=== PATIENT | female | born 1995 | race Caucasian/White ===

== ENCOUNTER → 2019-08-17 | Outpatient (CLI) | payer MEDICAID | LOC: LAB FS 09:12 | PROVIDERS: ATTEND Obstetrics & Gynecology | DX: Z34.80 Encounter for supervision of other normal pregnancy, unspecified trimester (principal) | CPT/HCPCS: 36415; 84702 ==

== ENCOUNTER → 2020-02-18 | Outpatient (CLI) | payer MEDICAID ==
[2020-02-18 14:31] LABS: BASOPHILS % (AUTO) 0 % (0-10); EOSINOPHILS # (AUTO) 0.3 10^3/uL (0.0-0.3); EOSINOPHILS % (AUTO) 3 % (0-10); HEMATOCRIT 38 % (35-52); HEMOGLOBIN 12.3 G/DL (11.5-16.0); LYMPHOCYTES # (AUTO) 1.8 X 10^3 (1.0-4.0); LYMPHOCYTES % (AUTO) 19 % (12-44); MEAN CORPUSCULAR HEMOGLOBIN 29 PG (25-34); MEAN CORPUSCULAR HGB CONC 33 G/DL (32-36); MEAN CORPUSCULAR VOLUME 88 FL (80-99); MEAN PLATELET VOLUME 10.7 FL (7.4-10.4); MONOCYTES # (AUTO) 0.6 X 10^3 (0.0-1.0); MONOCYTES % (AUTO) 7 % (0-12); NEUTROPHILS # (AUTO) 6.6 X 10^3 (1.8-7.8); NEUTROPHILS % (AUTO) 71 % (42-75); PLATELET COUNT 233 10^3/uL (130-400); WHITE BLOOD COUNT 9.3 10^3/uL (4.3-11.0)
== END ==
LOC: LAB 14:14
PROVIDERS: ATTEND Family Medicine
DX: N92.6 Irregular menstruation, unspecified (principal)
CPT/HCPCS: 36415; 84443; 85025

== ENCOUNTER → 2021-04-02 | Outpatient (CLI) | payer BC | LOC: MERGE 14:51 → LABNPT 14:51 | PROVIDERS: ATTEND Family Medicine | DX: N89.8 Other specified noninflammatory disorders of vagina (principal) | CPT/HCPCS: 87210 ==

== ENCOUNTER → 2021-05-20 | Outpatient (CLI) | payer BC | LOC: LAB FS 13:03 | PROVIDERS: ATTEND Family Medicine | DX: O09.91 Supervision of high risk pregnancy, unspecified, first trimester (principal); Z3A.00 Weeks of gestation of pregnancy not specified | CPT/HCPCS: 36415; 84702 ==

== ENCOUNTER 2021-10-27 10:57 | Emergency (ER) | payer BC ==
[~2021-10-27] VITALS: Ht 157.5 cm; Wt 69.8 kg
--- NOTE | 2021-10-27 11:11 | ED GI ---
General Stated Complaint: ABD PAIN; VOMITING Source of Information: Patient Exam Limitations: No Limitations History of Present Illness Date Seen by Provider: Oct 27, 2021 Time Seen by Provider: 10:59 Initial Comments 26yoF at roughly 8 WGA coming in due to lower abd cramping and nb/nb vomiting since yesterday morning. It is mild to moderate nausea that is constant, and nothing seems to make it better or worse. She has had nausea and vomiting since 4 weeks of , but now is having more lower abdominal cramping. She has been taking daily Zofran for roughly a month. She does endorse some burning with urination. She did have an official ultrasound a couple days ago confirming intrauterine . She is not having any diarrhea, fever, chest pain, SOA, vaginal bleeding/discharge, rash, weakness, numbness, or any other concerns. Allergies and Home Medications Allergies Coded Allergies: latex (Verified Allergy, Unknown, 10/27/21) Patient Home Medication List Home Medication List Reviewed: Yes Cefdinir (Cefdinir) 300 Mg Capsule, 300 MG PO BID Prescribed by: ANNE QUINONEZ on 10/27/21 1132 Promethazine HCl (Promethazine Tablet) 25 Mg Tablet, 25 MG PO Q6H PRN for NAUSEA/VOMITING-2ND LINE Prescribed by: ANNE QUINONEZ on 10/27/21 1132 Review of Systems Review of Systems Constitutional: No chills, No fever EENTM: No Blurred Vision Respiratory: Denies Cough Cardiovascular: Denies Chest Pain Gastrointestinal: Abdominal Pain; Denies Diarrhea; Nausea, Vomiting Genitourinary: No Symptoms Reported Musculoskeletal: no symptoms reported Skin: no symptoms reported Psychiatric/Neurological: No Symptoms Reported Endocrine: No Symptoms Reported Hematologic/Lymphatic: No Symptoms Reported All Other Systems Reviewed Negative Unless Noted: Yes Past Dwuxjnk-Tlognu-Gbyzga Hx Patient Social History Use of E-Cig and/or Vaping dev: Yes (quit) Substance use?: No Past Medical History Surgeries: Yes Section Physical Exam Vital Signs Vital Signs - First Documented 10/27/21 11:00 Temp 36.4 Pulse 103 Resp 18 B/P (MAP) 121/82 (95) O2 Delivery Room Air Capillary Refill : Height/Weight/BMI Height: '" Weight: lbs. oz. kg; BMI Method: General Appearance: WD/WN, no apparent distress HEENT: PERRL/EOMI, normal ENT inspection, pharynx normal Neck: non-tender, full range of motion, supple, normal inspection Respiratory: chest non-tender, lungs clear, normal breath sounds, no respiratory distress, no accessory muscle use Cardiovascular: regular rate, rhythm, no edema, no murmur Gastrointestinal: normal bowel sounds, non tender, soft; No distended, No guarding, No rebound Extremities: normal range of motion, non-tender, normal inspection, no pedal edema, no calf tenderness Back: normal inspection, no CVA tenderness Neurologic/Psychiatric: no motor/sensory deficits, alert Skin: normal color, warm/dry Lymphatic: no adenopathy Progress/Results/Core Measures Results/Orders Lab Results Laboratory Tests Test 10/27/21 11:00 10/27/21 11:10 Range/Units Urine Color YELLOW Urine Clarity CLOUDY Urine pH 6.0 5-9 Urine Specific [place] 1.025 H 1.016-1.022 Urine Protein 1+ H NEGATIVE Urine Glucose (UA) NEGATIVE NEGATIVE Urine Ketones TRACE H NEGATIVE Urine Nitrite NEGATIVE NEGATIVE Urine Bilirubin 2+ H NEGATIVE Urine Urobilinogen 2.0 < = 1.0 MG/DL Urine Leukocyte Esterase 1+ H NEGATIVE Urine RBC (Auto) NEGATIVE NEGATIVE Urine RBC NONE /HPF Urine WBC 25-50 H /HPF Urine Squamous Epithelial Cells 10-25 H /HPF Urine Crystals NONE /LPF Urine Bacteria LARGE H /HPF Urine Casts NONE /LPF Urine Mucus LARGE H /LPF Urine Culture Indicated YES White Blood Count 16.0 H 4.3-11.0 10^3/uL Red Blood Count 4.49 3.80-5.11 10^6/uL Hemoglobin 13.0 11.5-16.0 g/dL Hematocrit 37 35-52 % Mean Corpuscular Volume 82 80-99 fL Mean Corpuscular Hemoglobin 29 25-34 pg Mean Corpuscular Hemoglobin Concent 35 32-36 g/dL Red Cell Distribution Width 12.1 10.0-14.5 % Platelet Count 256 130-400 10^3/uL Mean Platelet Volume 10.3 9.0-12.2 fL Immature Granulocyte % (Auto) 0 % Neutrophils (%) (Auto) 85 H 42-75 % Lymphocytes (%) (Auto) 8 L 12-44 % Monocytes (%) (Auto) 6 0-12 % Eosinophils (%) (Auto) 0 0-10 % Basophils (%) (Auto) 0 0-10 % Neutrophils # (Auto) 13.6 H 1.8-7.8 10^3/uL Lymphocytes # (Auto) 1.3 1.0-4.0 10^3/uL Monocytes # (Auto) 1.0 0.0-1.0 10^3/uL Eosinophils # (Auto) 0.0 0.0-0.3 10^3/uL Basophils # (Auto) 0.0 0.0-0.1 10^3/uL Immature Granulocyte # (Auto) 0.1 0.0-0.1 10^3/uL My Orders Orders - ANNE QUINONEZ MD Comprehensive Metabolic Panel (10/27/21 11:11) Lipase (10/27/21 11:11) Ua Culture If Indicated (10/27/21 11:11) Ed Iv/Invasive Line Start (10/27/21 11:11) Cbc With Automated Diff (10/27/21 11:11) D5 Ns 1000 Ml Iv Solution (Dextrose 5%/0 (10/27/21 11:15) Ondansetron Injection (Zofran Injectio (10/27/21 11:15) D5 Ns 1000 Ml Iv Solution (Dextrose 5%/0 (10/27/21 11:22) Promethazine Injection (Phenergan Injec (10/27/21 11:30) Urine Culture (10/27/21 11:00) Ceftriaxone 1 Gm Pre-Mix (Rocephin 1 Gm (10/27/21 11:30) Manual Differential (10/27/21 11:10) Medications Given in ED Current Medications Medications Dose Ordered Sig/Evangelist Route Start Time Stop Time Status Last Admin Dose Admin Dextrose/Sodium Chloride 1,000 ml @ 0 mls/hr Q0M ONCE IV 10/27/21 11:15 10/27/21 11:16 DC 10/27/21 11:17 1,000 MLS/HR Ondansetron HCl 4 mg ONCE ONCE IVP 10/27/21 11:15 10/27/21 11:16 DC 10/27/21 11:18 4 MG Vital Signs/I&O 10/27/21 11:00 Temp 36.4 Pulse 103 Resp 18 B/P (MAP) 121/82 (95) O2 Delivery Room Air Progress Progress Note : Progress Note 26-year-old female with above history coming in due to nonbloody nonbilious vomiting and lower abdominal cramping been going on for roughly a day. ABCs were intact and vitals were stable on presentation. Physical exam reassuring with no signs of peritonitis. I did a [id number] ultrasound showing h eart rate around 160. Urinalysis consistent with infection and white blood cell count slightly elevated which could be from or the UTI. Her symptoms improved a lot after the IV fluids and nausea medicine. Given ceftriaxone initially and will send script for cefdinir for her cystitis. Will have her follow up with her OB later this week. Departure Impression Primary Impression: Hyperemesis gravidarum Additional Impression: UTI (urinary tract infection) Qualified Codes: N30.00 - Acute cystitis without hematuria Disposition: HOME, SELF-CARE Condition: Stable Departure-Patient Inst. Decision time for Depature: 12:15 Referrals: KIM RIOS MD (PCP) Primary Care Physician Patient Instructions: Hyperemesis Gravidarum, Urinary Tract Infection, Adult ED Add. Discharge Instructions: You do have a urinary tract infection which can affect you more in . It can cause lower abdominal pain. You will be on an antibiotic for a week. You also do have hyperemesis gravidarum which is the vomiting during . This typically gets better towards the second trimester. Try by things that have a lot of electrolytes and sugar in them such as Gatorade, Pedialyte, or Body Armor drinks. Follow-up with your OB here in the next couple of days. If you begin having severe abdominal pain that is worsened from today then call your doctor or come back to the ER. We sent in phenergan for nausea to [facility]. Try the zofran first and then if that is not working try taking the phenergan. Buy over the counter Carlos alax to help you have a bowel movement. Scripts Promethazine HCl (Promethazine Tablet) 25 Mg Tablet 25 MG PO Q6H PRN for NAUSEA/VOMITING-2ND LINE for 5 Days, #20 TAB Prov: ANNE QUINONEZ MD 10/27/21 Cefdinir (Cefdinir) 300 Mg Capsule 300 MG PO BID for 7 Days, #14 CAP 0 Refills Prov: ANNE QUINONEZ MD 10/27/21 Work/School Note: Work Release Form Date Seen in the Emergency Department: Oct 27, 2021 Return to Work: Oct 29, 2021 Restrictions: No Restrictions ANNE QUINONEZ MD Oct 27, 2021 11:11
[2021-10-27] MEDS ORDERED: ONDANSETRON 4 MG/2 ML (SDV) Z0FRAN IVP ONE (11:15)
[2021-10-27] MEDS ORDERED: D5 NS 1000 ML IV SOLUTION 1,000 ML IV ONE (11:15)
[2021-10-27 11:16] LABS: BASOPHILS % (AUTO) 0 % (0-10); EOSINOPHILS % (AUTO) 0 % (0-10); HEMATOCRIT 37 % (35-52); LYMPHOCYTES # (AUTO) 1.3 10^3/uL (1.0-4.0); LYMPHOCYTES % (AUTO) 8 % (12-44); MEAN CORPUSCULAR HEMOGLOBIN 29 pg (25-34); MEAN CORPUSCULAR HGB CONC 35 g/dL (32-36); MEAN CORPUSCULAR VOLUME 82 fL (80-99); MEAN PLATELET VOLUME 10.3 fL (9.0-12.2); MONOCYTES % (AUTO) 6 % (0-12); NEUTROPHILS # (AUTO) 13.6 10^3/uL (1.8-7.8); NEUTROPHILS % (AUTO) 85 % (42-75); PLATELET COUNT 256 10^3/uL (130-400)
[2021-10-27 11:17] LABS: COLOR,URINE YELLOW; GLUCOSE, URINE (UA) NEGATIVE (NEGATIVE); KETONES,URINE TRACE (NEGATIVE); LEUKOCYTE ESTERASE ,URINE 1+ (NEGATIVE); NITRITE,URINE NEGATIVE (NEGATIVE); PROTEIN,URINE 1+ (NEGATIVE)
[2021-10-27] MEDS ORDERED: D5 NS 1000 ML IV SOLUTION 1,000 ML IV STA (11:22)
[2021-10-27 11:23] LABS: BACTERIA,URINE LARGE /HPF; CLARITY,URINE CLOUDY; WBC,URINE 25-50 /HPF
[2021-10-27] MEDS ORDERED: cefTRIAXone 1 GM PRE-MIX 50 ML IV ONE (11:30)
[2021-10-27] MEDS ORDERED: PROMETHAZINE INJ 25 MG/ML (PHENERGAN) AMP IVP PRN (11:30)
[2021-10-27] MEDS ORDERED: CEFD300C3 PO (11:32)
[2021-10-27] MEDS ORDERED: PROM25TA14 PO (11:32)
[2021-10-27 11:45] LABS: ALBUMIN 4.2 GM/DL (3.2-4.5); BILIRUBIN,TOTAL 0.5 MG/DL (0.1-1.0); CALCIUM 9.9 MG/DL (8.5-10.1); CREATININE SERUM 0.53 MG/DL (0.60-1.30); POTASSIUM 3.9 MMOL/L (3.6-5.0); TOTAL PROTEIN 7.4 GM/DL (6.4-8.2)
[2021-10-27 11:59] LABS: LYMPHOCYTES % (MANUAL) 7 %; MONOCYTES % (MANUAL) 7 %; NEUTROPHILS % (MANUAL) 86 %
[2021-10-27 12:01] LABS: BILIRUBIN,URINE 2+ (NEGATIVE)
[2021-10-27 12:24] VITALS: BP 127/68
== END 2021-10-27 12:24 | disposition home or self-care (01) ==
LOC: EDUNIT# 10:57 → ER FS 10:58
DX: O21.0 Mild hyperemesis gravidarum (principal); O23.11 Infections of bladder in pregnancy, first trimester; N30.00 Acute cystitis without hematuria; O99.111 Other diseases of the blood and blood-forming organs and certain disorders involving the immune mechanism complicating pregnancy, first trimester; D72.829 Elevated white blood cell count, unspecified; Z87.891 Personal history of nicotine dependence; Z79.899 Other long term (current) drug therapy; Z3A.01 Less than 8 weeks gestation of pregnancy
CPT/HCPCS: 36415; 80053; 81000; 83690; 85007; 85027; 87088